=== PATIENT | female | born 1985 | race Caucasian/White ===

== ENCOUNTER 2017-03-17 19:48 | Emergency (ER) | payer MEDICAID, OTHER ==
[~2017-03-17] VITALS: Ht 157.5 cm; Wt 84.0 kg
[~2017-03-17 19:48] MED LIST: PRENATAL VITAMINS
[2017-03-17] MEDS ORDERED: ACETAMINOPHEN 325MG TABLET PO STA (23:40)
[2017-03-18 00:16] LABS: BASOPHILS % 0.5 % (0.0-2.0); EOSINOPHILS % 1.5 % (0.0-5.0); HEMATOCRIT. 38.1 % (36.0-48.0); HEMOGLOBIN. 12.9 g/dL (12.0-16.0); MEAN CORPUSCULAR HEMOGLOBIN 28.1 pg (28.0-32.0); MEAN CORPUSCULAR VOLUME 82.9 fL (81.0-99.0); MEAN PLATELET VOLUME 8.2 fl (7.4-10.4); MONOCYTES % 6.9 % (2.0-8.0); NEUTROPHILS % 62.1 % (40.0-76.0); PLATELET 278 x1000/uL (130-400); RED CELL DISTRIBUTION WIDTH 14.8 % (11.6-14.6)
[2017-03-18 00:21] LABS: PROTHROMBIN TIME 10.4 sec
[2017-03-18 00:31] LABS: B-HCG QUANTITATIVE 428 mIU/mL (<3); CARBON DIOXIDE 25 mEq/L (21-32); CHLORIDE 107 mEq/L (98-107)
[2017-03-18 01:15] VITALS: BP 119/71
[2017-03-18 01:44] LABS: CLARITY URINE CLOUDY (CLEAR); COLOR URINE YELLOW (YELLOW); GLUCOSE URINE NEGATIVE (NEGATIVE); KETONES URINE NEGATIVE (NEGATIVE); LEUKOCYTE ESTERASE URINE NEGATIVE (NEGATIVE); NITRITE URINE NEGATIVE (NEGATIVE); OCCULT BLOOD URINE NEGATIVE (NEGATIVE); PROTEIN URINE NEGATIVE (NEGATIVE); SPECIFIC GRAVITY URINE 1.033 (1.005-1.030); UROBILINOGEN URINE 0.2 E.U./dL (0.2-1.0)
== END 2017-03-18 01:50 | disposition left against medical advice (07) ==
LOC: ER 03-18 00:04
DX: O20.0 Threatened abortion (principal); Z3A.01 Less than 8 weeks gestation of pregnancy
CPT/HCPCS: 36415; 76801; 80053; 81001; 83690; 84702; 85025; 85610; 86850; 86900; 99285

== ENCOUNTER 2025-06-18 15:17 | Emergency (ER) | payer OTHER ==
[~2025-06-18] VITALS: Ht 162.6 cm; Wt 85.0 kg
[2025-06-18 15:39] VITALS: O2SAT 99
[2025-06-18] MEDS ORDERED: IBUP-2028 MT (17:07)
[2025-06-18] MEDS ORDERED: LIDO-53 TP (17:07)
[2025-06-18 17:42] VITALS: BP 128/82; PULSE 82; RESP 18; TEMP 36.8; O2SAT 99
== END 2025-06-18 17:43 | disposition home or self-care (01) ==
LOC: ER 15:17
DX: M72.2 Plantar fascial fibromatosis (principal); Z90.49 Acquired absence of other specified parts of digestive tract
CPT/HCPCS: 99283